=== PATIENT | male | born 1985 | race Caucasian/White ===

== ENCOUNTER 2016-05-31 13:00 | Inpatient (IN) | payer SELFPAY ==
[~2016-05-31] VITALS: Ht 180.3 cm; Wt 68.0 kg
--- NOTE | ~2016-05-31 | CON ---
PATIENT'S NAME: ISABEL SHERWOOD [facility] AGE: 30 Y [address] ROOM: [address] [address] LOCATION: [facility] [place] ADMIT DATE: 05/31/2016 Consultation DISCHARGE DATE: FAMILY PHYSICIAN: Linda Chase MD ATTENDING PHYSICIAN: Linda Chase DATE OF CONSULTATION: 05/31/2016 REASON FOR CONSULTATION: Cavitary pneumonia. HISTORY OF PRESENT ILLNESS: Mr. Sherwood is a 30-year-old, male who reports becoming ill about 10 days ago. He was out drinking pretty heavily on Sunday night, went to sleep and was noted that he woke up in the middle of the night, he had left-sided chest discomfort. He also had a little bit of cough. He did not think too much of it, but wondered if maybe he had swallowed some food poorly. Then he woke up the next day and seemed to be okay; however, he started to have more cough and some left-sided chest pain as well. When he started to develop a brownish sputum in the last couple of days, he decided that he would better go and he get checked out. He has not really had fevers, chills, or sweats. His chest pain had actually got better. He presented and was evaluated and noted to have a cavitary infiltrate in his left upper lobe, and thus was admitted to the hospital and placed in AFB isolation. Notably, he had been incarcerated in [place] and [place] for [facility] in the past and he was regularly tested for HIV, hepatitis, and TB and noted that all those tests were always negative. His most recent testing was about 6 years ago when he left. He does not have any known exposure to tuberculosis. He does drink a fair amount when he does not have his son. He does not recall any episodes of vomiting recently, but has passed down some. He has been admitted and seen by Pulmonary, and ID is asked to see him as well. PAST MEDICAL HISTORY: Pretty unremarkable. MEDICATIONS: He just takes, 1. Ibuprofen as needed. 2. Vitamin on occasion. ALLERGIES: NONE KNOWN. SOCIAL HISTORY: He smokes a pack a day. He used to use IV drugs, but has not done any since PATIENT'S NAME: ISABEL SHERWOOD [facility] AGE: 30 Y [address] ROOM: [id number] [place], [place] [address] LOCATION: [facility] [place] ADMIT DATE: 05/31/2016 Consultation DISCHARGE DATE: FAMILY PHYSICIAN: Linda Chase MD ATTENDING PHYSICIAN: Linda Chase he left the retirement. He drinks as well. FAMILY HISTORY: Noncontributory. REVIEW OF SYSTEMS: All remaining review of systems otherwise negative, and pertinent positives and negatives in the HPI. PHYSICAL EXAMINATION: GENERAL: He does not look toxic. He is awake, alert, and oriented. VITAL SIGNS: Temperature is 97.9, blood pressure is 118/79, pulse 89, and respirations 18. HEENT: He has poor dentition. Otherwise, normocephalic and atraumatic. Extraocular movements intact. There is no icterus. LUNGS: Clear to auscultation bilaterally. HEART: Regular. S1, S2. ABDOMEN: Soft, nontender. EXTREMITIES: Without cyanosis, clubbing, or edema. SKIN: Without rash. DATA: He had a white count of 18.5 at the clinic. D-dimer was low. Creatinine 0.89 and did have a blood sugar of 113. LFTs were normal. Hemoglobin is 15.4, platelet count 301. ASSESSMENT/PLAN: Cavitary left upper lobe mass/infiltrate. Likely bacterial infection based on the data. He has had a productive purulent-sounding cough along with a relatively acute onset of illness and leukocytosis. He did have some potential risk for TB in the past, thus it is reasonable to rule this out. He has had some sputum coughed up associated with these growths from a regular routine bacterial standpoint. Also get an AFB smear and PCR on the direct specimen. If we do not find anything on regular cultures, it certainly is reasonable to consider a bronchoscopy on Sunday. Hopefully, we will have some answers by then and we can direct therapy and see how he responds. We will start him on ceftriaxone for now and see how he does. Hopefully, get a pathogen and can switch him over to something by mouth and get him treated. MD NICKY ERWIN/modl PATIENT'S NAME: ISABEL SHERWOOD [facility] AGE: 30 Y [address] ROOM: [place] [address] LOCATION: [facility] [place] ADMIT DATE: 05/31/2016 Consultation DISCHARGE DATE: FAMILY PHYSICIAN: Linda Chase MD ATTENDING PHYSICIAN: Linda Chase /[id number] d: 05/31/160 t: 06/06/16 1451, CONSULTATION REPORT
--- NOTE | ~2016-05-31 | DS ---
PATIENT'S NAME: ADAMA SHERWOOD [facility] AGE: 30 Y [address] ROOM: [place] [address] LOCATION: [facility] [place] ADMIT DATE: 05/31/2016 Discharge Summary DISCHARGE DATE: 06/02/2016 FAMILY PHYSICIAN: Linda Chase MD ATTENDING PHYSICIAN: Linda Chase PRINCIPAL DIAGNOSIS: Left lobe cavity lesion secondary to most likely anaerobic bacterial infection. SECONDARY DIAGNOSES: 1. Tobacco abuse. 2. Alcohol abuse. 3. History of incarceration. 4. History of intravenous drug use (per patient, last exposure was approximately in 2010). CONSULT: Infectious Disease, Pulmonology. PROCEDURES: None. HISTORY OF PRESENT ILLNESS: Adama Sherwood is a 30-year-old male with a past medical history of tobacco abuse, alcohol abuse, history of incarceration, and history of intravenous drug use who presented to [facility] on 05/31/2016 for cough, hemoptysis, and chest pain. At the clinic, he was found to have a leukocytosis of 18.5 and a left upper lobe cavitary lesion on chest x-ray. He was admitted to the Med/Surg Unit at [facility] for workup of his lung lesion. HOSPITAL COURSE: He was admitted to [facility] on respiratory isolation. Pulmonary and Infectious Disease were consulted, and he was put on ceftriaxone (he was given a total of 2 doses). Three separate sputum cultures sent for culture and stain showed normal respiratory nayely and no acid fast bacilli, respectively. Because of his negative sputum, a bronchoscopy was differed, and his antibiotic regimen was changed to oral Augmentin 875 mg b.i.d. for 21 days (total of 42 doses) for coverage of anaerobic bacteria, the most likely cause of his lung lesion. The first dose of Augmentin was given in the hospital. He was discharged on 06/02/2016. DISCHARGE MEDICATIONS: 1. Augmentin 875 mg by mouth twice daily for 21 days for a total of 42 doses. 2. Multivitamin. CONDITION: Fair. PATIENT'S NAME: ADAMA SHERWOOD [facility] AGE: 30 Y [address] ROOM: [place] [address] LOCATION: [facility] [place] ADMIT DATE: 05/31/2016 Discharge Summary DISCHARGE DATE: 06/02/2016 FAMILY PHYSICIAN: Linda Chase MD ATTENDING PHYSICIAN: Linda Chase DISPOSITION: Discharged home on antibiotics with followup with Pulmonology, Dr. Nix (in 3 weeks, June 21-2016). He was counselled to stop smoking and drinking. SALAZAR JSOEPH, MEDICAL STUDENT FOR NADIA HERRERA MD AT/modl /[id number] d: 06/03/16 0002 t: 06/08/16 1632, DISCHARGE SUMMARY
--- NOTE | ~2016-05-31 | CON ---
PATIENT'S NAME: ISABEL SHERWOOD [facility] AGE: 30 Y [address] ROOM: [place] [address] [place]: [facility] [place] ADMIT DATE: 05/31/2016 Consultation DISCHARGE DATE: 06/02/2016 FAMILY PHYSICIAN: PHYSICIAN, NO ATTENDING PHYSICIAN: Linda Chase DATE OF CONSULTATION: 05/31/2016 INDICATION: Left lung cavitary lesion. HISTORY OF PRESENT ILLNESS: This is a 30-year-old male who is admitted from Dr. Chase's office for cough, congestion, and chest tightness for the last 2 weeks. He reports no previous past medical history. He says that the symptoms started quite suddenly. He recalls drinking alcohol and eating sanders one night and then thinks that he passed out. When he woke, he had chest pain with a sensation that something was in his left chest. This is when the coughing started. He developed pain with inspiration. He also developed hemoptysis and brown sputum in the last few days. He denies any nausea, vomiting, or fever. He has had chills the last night or two. He denies any weight loss or fatigue. No history of HIV, hep C, or illicit drug use other than marijuana. He reports that he was incarcerated over 6 years ago and had a negative PPD. He currently works at a building mechanic shop. He denies any exposure to illnesses recently. He denies any travels recently. He is a current half pack per day smoker, but was up to 1 pack per day since the age of 8. PAST MEDICAL HISTORY: Includes tobacco use. ALLERGIES: SEE MAR. MEDICATIONS: See MAR. FAMILY HISTORY: Negative for heart disease or lung disease. SOCIAL HISTORY: He lives by himself in an apartment here in [facility]. He was born and raised in [place], [place]. He works as a building mechanic and has a 5-year-old child that he shares custody with. He reports that he drinks alcohol on a social basis and has smoked since the age of 8 up to 1 pack per day, but is down to half a pack per day in the last several months. PATIENT'S NAME: ISABEL SHERWOOD [facility] AGE: 30 Y [address] ROOM: [place] [address] [place]: [facility] [place] ADMIT DATE: 05/31/2016 Consultation DISCHARGE DATE: 06/02/2016 FAMILY PHYSICIAN: PHYSICIAN, NO ATTENDING PHYSICIAN: Linda Chase REVIEW OF SYSTEMS: 12-point review of systems is negative except for what is noted in the HPI. PHYSICAL EXAMINATION: VITAL SIGNS: Blood pressure 118/79, pulse 89, respirations 18, temperature 97.9, and he is 97% on room air. GENERAL: This is a 30-year-old, well-developed, well-nourished male who is alert and oriented x3 and appears in no acute distress at the time of exam. HEENT: Head: Normocephalic and atraumatic. Eyes, clear. NECK: Supple. No adenopathy. No carotid bruits or JVD. LUNGS: Clear throughout bilaterally. No wheezes or rales. HEART: Regular rate and rhythm without murmur, gallop, rub. ABDOMEN: Soft, nontender, and nondistended. Bowel sounds x4. EXTREMITIES: No cyanosis, clubbing, or edema. DIAGNOSTIC DATA: Includes sodium 137, potassium 4, BUN 12, and creatinine 0.89. WBC 18.5, hemoglobin 13.4, hematocrit 44.1, and platelets 301. A CT of the chest performed showed a 5-cm cavitary mass with atelectasis and possible infiltrate. ASSESSMENT: 1. Left lung cavitary lesion which is concerning for a lung abscess versus cancer versus tuberculosis which is less likely. 2. Tobacco abuse. 3. Abnormal chest CT. 4. Hemoptysis which is mild. PLAN: We will check sputum cultures with AFB 3 times to rule out TB. We will continue with isolation precautions until then. ID was consulted and antibiotics will be per them. We will decide on the need for bronchoscopy depending on the results of the sputum cultures. In the meantime, we will also order procalcitonin and CBC for the morning. Further recommendations will be made pending the course of his stay. Thank you for the consult and opportunity to participate in the patient's care. GLORIA BAHENA APRN FOR RACHEL LARKIN MD PATIENT'S NAME: ISABEL SHERWOOD [facility] AGE: 30 Y [address] ROOM: [place] [address] LOCATION: [facility] [place] ADMIT DATE: 05/31/2016 Consultation DISCHARGE DATE: 06/02/2016 FAMILY PHYSICIAN: DARIEN LONG ATTENDING PHYSICIAN: Linda Chase MRH/modl /[id number] d: 06/12/162126 t: 06/14/16 1143, CONSULTATION REPORT
[2016-05-31] MEDS ORDERED: THERAGRAN-M1 TAB PO (15:47)
[2016-05-31] MEDS ORDERED: ADVIL200 MG PO (15:48)
[2016-06-01 06:02] LABS: BASOPHIL # 0.1 K/uL (0.0-0.2); BASOPHIL % 0.4 %; EOSINOPHIL # 0.1 K/uL (0.0-0.5); HEMATOCRIT 41.6 % (37.0-53.0); HEMOGLOBIN 14.4 g/dL (12.0-17.0); IMMATURE GRANULOCYTE # 0.1 K/uL (0.0-0.3); IMMATURE GRANULOCYTE % 0.4 %; LYMPHOCYTE # 2.3 K/uL (0.8-4.0); LYMPHOCYTE % 16.7 %; MCHC 34.6 gm/dL (32.0-36.5); MCV 89.5 fl (83.0-98.0); MONOCYTE # 1.2 K/uL (0.0-1.0); MONOCYTE % 8.4 %; NEUTROPHIL % 73.1 %; NRBC % 0 /100WBC (0-0.00); PLATELET COUNT 303 K/uL (150-450); RBC 4.65 M/uL (4.00-6.00); RDW-CV 12.2 % (11.9-14.6); WBC 13.7 K/uL (4.0-11.0)
[2016-06-02 10:09] LABS: BASOPHIL % 0.4 %; EOSINOPHIL # 0.2 K/uL (0.0-0.5); EOSINOPHIL % 1.4 %; HEMATOCRIT 41.2 % (37.0-53.0); HEMOGLOBIN 13.9 g/dL (12.0-17.0); IMMATURE GRANULOCYTE % 0.4 %; LYMPHOCYTE # 1.6 K/uL (0.8-4.0); LYMPHOCYTE % 15.1 %; MCH 30.3 pg (27.0-34.0); MCHC 33.7 gm/dL (32.0-36.5); MONOCYTE # 0.9 K/uL (0.0-1.0); MONOCYTE % 8.3 %; MPV 9.7 fl (9.4-12.4); NEUTROPHIL # (ANC) 7.9 K/uL (1.4-9.0); NEUTROPHIL % 74.4 %; NRBC % 0 /100WBC (0-0.00); PLATELET COUNT 311 K/uL (150-450); RBC 4.58 M/uL (4.00-6.00); WBC 10.6 K/uL (4.0-11.0)
[2016-06-02] MEDS ORDERED: AUGMENTIN250 MG PO (18:52)
== END 2016-06-02 19:20 | disposition disaster alternative care site (69) | DRG 178 ==
LOC: GMSU 13:17
PROVIDERS: Obstetrics & Gynecology Obstetrics; ADMIT Family Medicine
DX: J85.1 Abscess of lung with pneumonia (principal); R04.2 Hemoptysis; J98.11 Atelectasis; B96.89 Other specified bacterial agents as the cause of diseases classified elsewhere; F17.210 Nicotine dependence, cigarettes, uncomplicated
CPT/HCPCS: J0696; J7040; J7050; Q9967